=== PATIENT | female | born 1960 | race Caucasian/White ===

== ENCOUNTER 2018-03-07 09:31 | Inpatient (IN) | payer BC ==
[~2018-03-07] VITALS: Ht 5535.5 cm; Wt 65.0 kg
[2018-03-07] MEDS ORDERED: nitroGLYCERIN 1gm ointment UD TP ONE (09:55)
[2018-03-07] MEDS ORDERED: nitroGLYCERIN 0.4mg SUBLingual tab SL PRN ×2 (09:55→11:40)
[2018-03-07 10:15] LABS: BASOPHILS # (AUTO) 0.1 X10'3 (0-0.2); BASOPHILS % (AUTO) 0.8 % (0-1); EOSINOPHILS # (AUTO) 0.2 X10'3 (0-0.9); HEMATOCRIT 46.9 % (35.0-45.0); HEMOGLOBIN 15.6 g/dl (12.0-16.0); LYMPHOCYTES # (AUTO) 1.9 X10'3 (1.1-4.8); LYMPHOCYTES % (AUTO) 25.3 % (21-51); MEAN CORPUSCULAR HEMOGLOBIN 30.1 PG (27.0-31.0); MEAN CORPUSCULAR HGB CONC 33.4 % (33.0-36.5); MEAN CORPUSCULAR VOLUME 90.2 FL (78-98); MEAN PLATELET VOLUME 7.9 FL (7.4-10.4); MONOCYTES # (AUTO) 0.4 X10'3 (0-0.9); MONOCYTES % (AUTO) 4.8 % (2-12); NEUTROPHILS # (AUTO) 5.2 X10'3 (1.8-7.7); NEUTROPHILS % (AUTO) 67.1 % (42-75); PLATELET COUNT 215 X10'3 (140-440); RED BLOOD COUNT 5.19 X10'6 (4.20-5.60); RED CELL DISTRIBUTION WIDTH 14.6 % (11.5-14.5); WHITE BLOOD COUNT 7.7 X10'3 (4.5-11.0)
[2018-03-07] MEDS ORDERED: furosemide 10 MG/1 ML 10ml inj IV ONE (10:20)
[2018-03-07 10:30] LABS: ALANINE AMINOTRANSFERASE 16 U/L (12-78); ALBUMIN 3.9 G/DL (3.4-5.0); ALBUMIN/GLOBULIN RATIO 1.3 (1.1-1.5); ALKALINE PHOSPHATASE 104 IU/L (46-116); ANION GAP 9 (8-16); ASPARTATE AMINO TRANSFERASE 13 U/L (10-37); BILIRUBIN,TOTAL 0.4 MG/DL (0.1-1.0); BLOOD UREA NITROGEN 17 MG/DL (7-18); BUN/CREATININE RATIO 16.5 (6.6-38.0); CALCIUM 9.1 MG/DL (8.5-10.1); CHLORIDE 107 MMOL/L (99-107); CREATININE 1.03 MG/DL (0.40-0.90); GLUCOSE 117 MG/DL (70-104); POTASSIUM 4.5 MMOL/L (3.5-5.1); SODIUM 142 MMOL/L (135-145); TOTAL CARBON DIOXIDE 25.8 MMOL/L (24-32); eGFR 55 ML/MIN
[2018-03-07 10:37] LABS: MAGNESIUM 1.8 MG/DL (1.5-2.4)
[2018-03-07] MEDS ORDERED: ASPI81TA52 PO (10:49)
[2018-03-07] MEDS ORDERED: LEVO100T PO (10:49)
[2018-03-07] MEDS ORDERED: ESOM20CA PO (10:49)
[2018-03-07] MEDS ORDERED: CLOP75TA15 PO (10:49)
[2018-03-07] MEDS ORDERED: CAFFEINE CITRATE 60 MG/3 ML injection vial IV PRN (11:40)
[2018-03-07] MEDS ORDERED: magnesium Cl slow-release 64mg tablet PO PRN (11:40)
[2018-03-07] MEDS ORDERED: mag hydrox/Alum hydrox/simeth 30ml oral suspension PO PRN (11:40)
[2018-03-07] MEDS ORDERED: metoprolol tartrate 1mg/ml inj IV PRN (11:40)
[2018-03-07] MEDS ORDERED: magnesium hydroxide 30ml (MOM) UD suspension PO PRN (11:40)
[2018-03-07] MEDS ORDERED: regadenoson 0.4mg/5ml syringe IV ONE (11:40)
[2018-03-07] MEDS ORDERED: potassium Cl 20 mEq SR tablet PO PRN ×2 (11:40)
[2018-03-07] MEDS ORDERED: magnesium 2GM in 50ml NS 50 ML IV PRN (11:40)
[2018-03-07] MEDS ORDERED: diphenhydrAMINE 50 mg/ml inj IV PRN (11:40)
[2018-03-07] MEDS ORDERED: magnesium 4gm in 100ml NS 100 ML IV PRN (11:40)
[2018-03-07] MEDS ORDERED: HYDROcodone/acetaminophen 5mg/325mg tablet PO PRN (11:40)
[2018-03-07] MEDS ORDERED: ondansetron/PF 4mg/2ml inj IV PRN (11:40)
[2018-03-07] MEDS ORDERED: acetaminophen 325mg tablet PO PRN ×2 (11:40)
[2018-03-07] MEDS ORDERED: potassium Cl 40MEQ/NS 500ml 500 ML IV PRN ×2 (11:40)
[2018-03-07 12:38] LABS: CLARITY,URINE CLEAR (Clear); COLOR,URINE YELLOW (Yellow); GLUCOSE, URINE NEGATIVE (Neg); KETONES,URINE NEGATIVE (Neg); LEUKOCYTE ESTERASE ,URINE NEGATIVE (Neg); NITRITES, URINE NEGATIVE (Neg); OCCULT BLOOD,URINE NEGATIVE (Neg); PH,URINE 6.5 (4.8-8.0); PROTEIN,URINE NEGATIVE (Neg); UROBILINOGEN,URINE 0.2 E.U/dL (0.2-1.0)
[2018-03-07 12:41] LABS: UA COLLECTION TYPE CLN CATCH MIDSTREAM
[2018-03-07] MEDS: K and/or MAG REPLACEMENT MC SCH (13:01)
[2018-03-07 15:00] VITALS: BP 140/86
[2018-03-07] MEDS: enoxaparin 40mg/0.4ml syringe SUBCUT SCH (15:29)
[2018-03-07] MEDS: normal saline 1000ml 1,000 ML IV SCH (15:30)
[2018-03-07 19:00] VITALS: BP 129/70
[2018-03-07 23:00] VITALS: BP 112/67
[2018-03-08] VITALS (12 sets, daily range): BP systolic 114–173; BP diastolic 69–84
[2018-03-08] MEDS: normal saline 1000ml 1,000 ML IV SCH ×2 (03:28→08:05)
[2018-03-08 05:47] LABS: BASOPHILS # (AUTO) 0.1 X10'3 (0-0.2); EOSINOPHILS # (AUTO) 0.2 X10'3 (0-0.9); EOSINOPHILS % (AUTO) 2.4 % (0-6); HEMATOCRIT 41.2 % (35.0-45.0); HEMOGLOBIN 13.9 g/dl (12.0-16.0); LYMPHOCYTES # (AUTO) 2.4 X10'3 (1.1-4.8); LYMPHOCYTES % (AUTO) 37.1 % (21-51); MEAN CORPUSCULAR HEMOGLOBIN 30.2 PG (27.0-31.0); MEAN CORPUSCULAR HGB CONC 33.8 % (33.0-36.5); MEAN CORPUSCULAR VOLUME 89.3 FL (78-98); MEAN PLATELET VOLUME 8.2 FL (7.4-10.4); MONOCYTES # (AUTO) 0.4 X10'3 (0-0.9); MONOCYTES % (AUTO) 6.5 % (2-12); NEUTROPHILS # (AUTO) 3.5 X10'3 (1.8-7.7); PLATELET COUNT 175 X10'3 (140-440); RED BLOOD COUNT 4.62 X10'6 (4.20-5.60); RED CELL DISTRIBUTION WIDTH 14.5 % (11.5-14.5); WHITE BLOOD COUNT 6.6 X10'3 (4.5-11.0)
[2018-03-08 06:02] LABS: ALANINE AMINOTRANSFERASE 14 U/L (12-78); ALBUMIN 3.2 G/DL (3.4-5.0); ALBUMIN/GLOBULIN RATIO 1.1 (1.1-1.5); ALKALINE PHOSPHATASE 85 IU/L (46-116); ANION GAP 8 (8-16); ASPARTATE AMINO TRANSFERASE 15 U/L (10-37); BILIRUBIN,TOTAL 0.4 MG/DL (0.1-1.0); BLOOD UREA NITROGEN 16 MG/DL (7-18); CHLORIDE 111 MMOL/L (99-107); CHOL/HDL RATIO 3.6 (0.00-4.99); CHOLESTEROL 221 MG/DL (0-200); CREATININE 0.89 MG/DL (0.40-0.90); GLUCOSE 91 MG/DL (70-104); HDL CHOLESTEROL 61 MG/DL (35-60); LDL CHOLESTEROL 144 MG/DL (50-100); MAGNESIUM 1.9 MG/DL (1.5-2.4); PHOSPHORUS 3.7 MG/DL (2.3-4.5); POTASSIUM 5.3 MMOL/L (3.5-5.1); SODIUM 145 MMOL/L (135-145); TOTAL CARBON DIOXIDE 25.9 MMOL/L (24-32); TRIGLYCERIDES 74 MG/DL (20-135); eGFR 65 ML/MIN
[2018-03-08] MEDS ORDERED: aspirin 81mg tablet.DR PO SCH (08:00)
[2018-03-08] MEDS ORDERED: pantoprazole 40mg Tablet.DR PO SCH (08:00)
[2018-03-08] MEDS: K and/or MAG REPLACEMENT MC SCH (08:00)
[2018-03-08] MEDS ORDERED: clopidogrel 75mg tablet PO SCH (08:00)
[2018-03-08] MEDS ORDERED: levoTHYROXINE 100mcg tablet PO SCH (08:00)
[2018-03-08] MEDS: enoxaparin 40mg/0.4ml syringe SUBCUT SCH (08:05)
[2018-03-08] MEDS ORDERED: regadenoson 0.4mg/5ml syringe IV ONE (08:50)
[2018-03-08] MEDS ORDERED: CAFFEINE CITRATE 60 MG/3 ML injection vial IV ONE (08:50)
[2018-03-08] MEDS ORDERED: NITR0.4T51 SL (12:24)
[2018-03-08] MEDS ORDERED: CARV3.12 PO (12:24)
[2018-03-08] MEDS ORDERED: ATOR20TA66 PO (12:24)
[2018-03-08] MEDS ORDERED: CLOP75TA15 PO (12:39)
[2018-03-08] MEDS ORDERED: LEVO100T9 PO (12:47)
== END 2018-03-08 13:16 | disposition home or self-care (01) | DRG 313 ==
LOC: ER 09:31 → ED HOLD 11:39 → PCU 3S 13:10 → CMPBEDREQ 19:41
PROVIDERS: ADMIT Family Medicine; ATTEND Family Medicine
PROC: 4A02XM4 Measurement of Cardiac Total Activity, External Approach (ICD-10-PCS; principal; 2018-03-08)
PROC: 3E073KZ Introduction of Other Diagnostic Substance into Coronary Artery, Percutaneous Approach (ICD-10-PCS; 2018-03-08)
DX: R07.9 Chest pain, unspecified (principal); I25.10 Atherosclerotic heart disease of native coronary artery without angina pectoris; E03.9 Hypothyroidism, unspecified; K21.9 Gastro-esophageal reflux disease without esophagitis; E78.5 Hyperlipidemia, unspecified; F17.200 Nicotine dependence, unspecified, uncomplicated; G89.29 Other chronic pain; M54.9 Dorsalgia, unspecified; Z88.6 Allergy status to analgesic agent; Z88.8 Allergy status to other drugs, medicaments and biological substances; I25.2 Old myocardial infarction; Z79.82 Long term (current) use of aspirin; Z79.899 Other long term (current) drug therapy; Z80.0 Family history of malignant neoplasm of digestive organs; Z80.8 Family history of malignant neoplasm of other organs or systems; Z90.710 Acquired absence of both cervix and uterus; Z95.5 Presence of coronary angioplasty implant and graft; Z91.14 Patient's other noncompliance with medication regimen; Z90.49 Acquired absence of other specified parts of digestive tract
CPT/HCPCS: 36415; 71045; 78452; 80053; 80061; 81003; 83036; 83735; 83880; 84100; 84443; 84484; 85025; 87070; 93005; 93306; 93880; 99285; A9500; J1650; J1940; J7030

== ENCOUNTER 2020-03-30 14:07 | Emergency (ER) | payer BC ==
[~2020-03-30] VITALS: Ht 167.6 cm; Wt 65.0 kg
[~2020-03-30 14:07] MED LIST: ASPI81TA52 PO; ATOR20TA66 PO; CARV3.12 PO; CLOP75TA15 PO; ESOM20CA PO; LEVO100T9 PO; NITR0.4T51 SL
[2020-03-30 14:11] VITALS: BP 160/88
[2020-03-30] MEDS ORDERED: LIDOcaine 5% patch TP ONE (14:30)
== END 2020-03-30 15:19 | disposition home or self-care (01) ==
LOC: ER 14:08
DX: R07.81 Pleurodynia (principal); I25.10 Atherosclerotic heart disease of native coronary artery without angina pectoris; I25.2 Old myocardial infarction; Z98.890 Other specified postprocedural states; Z88.5 Allergy status to narcotic agent; Z88.8 Allergy status to other drugs, medicaments and biological substances; Z79.82 Long term (current) use of aspirin; Z79.899 Other long term (current) drug therapy
CPT/HCPCS: 71045; 99283